=== PATIENT | female | born 1950 | race Caucasian/White ===

== ENCOUNTER 2017-06-30 21:03 | Observation (INO) ==
[2017-06-30] MEDS ORDERED: 0.9 % Sodium Chloride 1,000 ML IVC ONE (21:26)
--- NOTE | 2017-06-30 21:42 | Emergency Department Note ---
Disposition Clinical Impression: Acute electrocardiogram changes Altered mental status Qualifiers: Altered mental status type: unspecified Qualified Code(s): R41.82 - Altered mental status, unspecified Disposition: Admitted As Inpatient Condition: Good Time of Disposition: 04:13 Altered Mental Status HPI - General Chief Complaint: ED Altered Mental Status Stated Complaint: altered mental status, doesnt feel well Time Seen by Provider: 06/30/17 21:08 Source: patient Limitations: no limitations Nursing Notes Reviewed: Yes Vital Signs Reviewed: Yes - History of Present Illness HPI Narrative: Mrs. Hummel, 66-year-old female, presents from home with her granddaughter bedside valuation of confusion. Per granddaughter, last known normal was this morning. Granddaughter describes grandmother's confusion as grandmother forgetting what happened yesterday, forgetting conversations, forgetting instructions. Patient was at urgent care this morning for flulike symptoms. She does not recall this visit, where urgent care was located, or what the results of that visit were. Patient does not know her medical history and denies any change in medications. Granddaughter does not know grandmother's medical history and does not know if she has had any change in medications. ROS: Positive: As above Negative: Fever, chills, nausea, vomiting, trauma, headache, malaise, fatigue, neck pain, back pain, chest pain, palpitations, abdominal pain, dysuria, changes in bowel habits - Related Data Home Medications Medication Instructions Recorded Confirmed Atenolol 02/17/15 02/17/15 Levothyroxine 02/17/15 02/17/15 Sertraline HCl 02/17/15 02/17/15 Previous Rx's Medication Instructions Recorded Amoxicillin 875 mg PO BID #20 tablet 02/17/15 Ibuprofen [Motrin] 800 mg PO Q8HR #30 tablet 02/17/15 Oxycodone HCl/Acetaminophen 1 each PO Q6H PRN #16 tablet 02/17/15 [Percocet 5-325 mg Tablet] Allergies Allergy/AdvReac Type Severity Reaction Status Date / Time No Known Allergies Allergy Verified 02/17/15 17:39 All systems ED: reviewed and negative except as stated. Review of Systems: As Per HPI Past Medical History - Past Medical History Medical history: Reports: no medical history Psychiatric history: Reports: no psych history - Social History Smoking Status: Never smoker Smokeless Tobacco Status: No Alcohol use: Reports: none Drug use: Reports: none Physical Exam Vital Signs Reviewed General: Patient is alert, oriented to self and location (not oriented to situation, month, year), and in no acute distress. Head: atraumatic, normocephalic Eye: normal appearance, PERRL, EOMI, no scleral icterus, no conjunctival injection ENT: mucous membranes moist, normal external ear exam Neck: normal inspection, trachea midline, full ROM Chest: normal inspection, symmetric chest rise Respiratory: Good respiratory effort. Bilateral breath sounds are clear without wheezing, crackles, or rhonchi. Cardiovastular: Regular rate and rhythm. No clicks, rubs, gallops, or murmors. Normal heart sounds. Abdomen: Obese. Bowel sounds present normoactive x-4 quadrants. Abdomen is soft, nondistended, and nontender. No guarding or rebound. No organomegaly noted. Musculoskeletal: Spontaneously moving all extremities. Skin: warm, dry, intact. Neuro: GCS 15. Alert and oriented x4. Sensation light touch intact. No pronator drift. Negative finger to nose. Cranial nerves II through XII intact. No limb drift upper or lower extremities. Patient is able to repeat short phrases. Negative Kernig, negative Brudzinski Psych: Patient's affect is appropriate for situation. - General Limitations: no limitations General appearance: alert, in no apparent distress Course Course Narrative: Patient is well-appearing on presentation however, on discussion, she appears to have amnesia of the last several days. She answers questions straightforward in, she does not know the answer, simply states I do not know. As such, patient is a poor historian. Her granddaughter at bedside is understandably a poor historian. According to the counter, patient's daughter was bedside. She was able to confirm that there have been no medication changes and corroborate patient's confusion. Patients medical workup does not adequately explain her presentation. Additionally, initial EKG showed T-wave inversion in precordial leads. She was chest pain-free with troponin below upper limit of normal. Subsequent repeat EKG was unchanged from initial. Patient was provided with aspirin. I discussed the above with the patient, granddaughter, and daughter at bedside. They are agreeable to admission for continued evaluation and management. I discussed the above with the admitting hospitalist. He is in agreement to accepting the patient for continued evaluation management. Vital Signs Temperature 99.4 F 06/30/17 21:04 Pulse Rate 105 06/30/17 21:04 Respiratory Rate 16 06/30/17 21:04 Blood Pressure 121/77 06/30/17 21:04 O2 Sat by Pulse Oximetry 96 06/30/17 21:04 Temperature 98.4 F 07/01/17 03:37 Pulse Rate 87 07/01/17 03:37 Respiratory Rate 17 07/01/17 03:37 Blood Pressure 149/71 07/01/17 03:37 O2 Sat by Pulse Oximetry 94 07/01/17 03:37 Oxygen Delivery Oxygen Delivery Room Air Altered Mental Status - Lab Data Result diagrams: 06/30/17 21:30 06/30/17 21:30 Lab Results 06/30/17 06/30/17 06/30/17 Range/Units 20:02 20:02 21:30 WBC 4.8 (4.3-11.1) K/mcL RBC 4.79 (3.82-4.97) M/mcL Hgb 13.5 (11.5-15.4) g/dL Hct 41.3 (35.3-44.9) % MCV 86.2 (83.0-100.0) fL MCH 28.2 (28.0-33.3) pg MCHC 32.7 (31.6-35.5) g/dL RDW 12.8 (11.5-14.5) % Plt Count 148 (140-400) K/mcL MPV 9.7 (9.4-12.4) fL Immature Gran % 0.4 (0-4) % Seg Neutrophils % 82.1 % Lymphocytes % 7.5 % Monocytes % 9.6 % Eosinophils % 0.2 % Basophils % 0.2 % Neutrophils # 3.9 (1.6-8.9) K/mcL Lymphocytes # 0.4 L (0.6-4.6) K/mcL Monocytes # 0.5 (0.0-1.3) K/mcL Eosinophils # 0.0 (0.0-0.6) K/mcL Basophils # 0.0 (0.0-0.2) K/mcL PT (9.4-12.1) Seconds INR APTT (26.0-36.0) Seconds VBG pH (7.32-7.42) pH Units VBG pCO2 (41-51) mmHg VBG pO2 (25-50) mmHg VBG HCO3 (21-27) mEq/L Sodium (136-145) mEq/L Potassium (3.5-5.1) mEq/L Chloride (98-107) mEq/L Carbon Dioxide (23-29) mEq/L BUN (8-23) mg/dL Creatinine (0.60-1.20) mg/dL Est GFR ( Amer) (> 60) Est GFR (Non-Af Amer) (> 60) BUN/Creatinine Ratio (6-26) Glucose (70-105) mg/dL Calculated Osmolality (280-300) Calcium (8.6-10.3) mg/dL Total Bilirubin (0.3-1.0) mg/dL Direct Bilirubin (0.0-0.2) mg/dL Indirect Bilirubin (0.0-1.2) mg/dL AST (13-39) Units/L ALT (7-52) Units/L Alkaline Phosphatase (34-104) Units/L Ammonia (16-53) mcmol/L Troponin I (< 0.04) ng/mL Serum Total Protein (6.4-8.9) g/dL Albumin (3.5-5.7) g/dL Globulin (2.4-3.5) g/dL Albumin/Globulin Ratio (1.1-2.2) TSH (0.340-5.600) mcIU/mL Urine Color Yellow (Yellow) Urine Clarity Cloudy A (Clear) Urine pH 6.0 (5.0-8.0) pH Units Ur Specific [place] 1.027 H (1.010-1.025) Urine Protein 30 H (Neg-Trace) mg/dL Urine Glucose (UA) Normal (Normal) mg/dL Urine Ketones 15 H (Negative) mg/dL Urine Blood Negative (Negative) Urine Nitrite Negative (Negative) Urine Bilirubin Negative (Negative) Urine Urobilinogen Normal (Normal) mg/dL Ur Leukocyte Esterase Small H (Negative) Urine Microscopic RBC 0-3 (0-3) per hpf Urine Microscopic WBC 5-15 H (0-3) per hpf Ur Squamous Epith Cells Many H (None-Few) per lpf Urine Bacteria None Seen (None-Few) per hpf Hyaline Casts None Seen (None-Few) per lpf Ur Culture Indicated? NO. (NO) Urine Opiates Screen Negative (Glcvoq=738) ng/mL Ur Barbiturates Screen Negative (Ritowd=768) ng/mL Ur Phencyclidine Scrn Negative (Cutoff=25) ng/mL Ur Amphetamines Screen Negative (Fwddtz=2660) ng/mL U Benzodiazepines Scrn Negative (Xsnffb=888) ng/mL Urine Cocaine Screen Negative (Cutoff= 300) ng/mL U Marijuana (THC) Screen Negative (Cutoff = 50) ng/mL Ethyl Alcohol (0-10) mg/dL 06/30/17 06/30/17 06/30/17 Range/Units 21:30 21:30 21:30 WBC (4.3-11.1) K/mcL RBC (3.82-4.97) M/mcL Hgb (11.5-15.4) g/dL Hct (35.3-44.9) % MCV (83.0-100.0) fL MCH (28.0-33.3) pg MCHC (31.6-35.5) g/dL RDW (11.5-14.5) % Plt Count (140-400) K/mcL MPV (9.4-12.4) fL Immature Gran % (0-4) % Seg Neutrophils % % Lymphocytes % % Monocytes % % Eosinophils % % Basophils % % Neutrophils # (1.6-8.9) K/mcL Lymphocytes # (0.6-4.6) K/mcL Monocytes # (0.0-1.3) K/mcL Eosinophils # (0.0-0.6) K/mcL Basophils # (0.0-0.2) K/mcL PT 11.6 (9.4-12.1) Seconds INR 1.1 APTT 24.4 L (26.0-36.0) Seconds VBG pH (7.32-7.42) pH Units VBG pCO2 (41-51) mmHg VBG pO2 (25-50) mmHg VBG HCO3 (21-27) mEq/L Sodium 132 L (136-145) mEq/L Potassium 4.0 (3.5-5.1) mEq/L Chloride 101 (98-107) mEq/L Carbon Dioxide 20 L (23-29) mEq/L BUN 11 (8-23) mg/dL Creatinine 0.80 (0.60-1.20) mg/dL Est GFR ( Amer) > 60 (> 60) Est GFR (Non-Af Amer) > 60 (> 60) BUN/Creatinine Ratio 14 (6-26) Glucose 124 H (70-105) mg/dL Calculated Osmolality 275 L (280-300) Calcium 9.1 (8.6-10.3) mg/dL Total Bilirubin 0.6 (0.3-1.0) mg/dL Direct Bilirubin 0.1 (0.0-0.2) mg/dL Indirect Bilirubin 0.5 (0.0-1.2) mg/dL AST 20 (13-39) Units/L ALT 13 (7-52) Units/L Alkaline Phosphatase 97 (34-104) Units/L Ammonia (16-53) mcmol/L Troponin I < 0.03 (< 0.04) ng/mL Serum Total Protein 6.8 (6.4-8.9) g/dL Albumin 3.9 (3.5-5.7) g/dL Globulin 2.9 (2.4-3.5) g/dL Albumin/Globulin Ratio 1.3 (1.1-2.2) TSH 3.093 (0.340-5.600) mcIU/mL Urine Color (Yellow) Urine Clarity (Clear) Urine pH (5.0-8.0) pH Units Ur Specific [place] (1.010-1.025) Urine Protein (Neg-Trace) mg/dL Urine Glucose (UA) (Normal) mg/dL Urine Ketones (Negative) mg/dL Urine Blood (Negative) Urine Nitrite (Negative) Urine Bilirubin (Negative) Urine Urobilinogen (Normal) mg/dL Ur Leukocyte Esterase (Negative) Urine Microscopic RBC (0-3) per hpf Urine Microscopic WBC (0-3) per hpf Ur Squamous Epith Cells (None-Few) per lpf Urine Bacteria (None-Few) per hpf Hyaline Casts (None-Few) per lpf Ur Culture Indicated? (NO) Urine Opiates Screen (Asrure=518) ng/mL Ur Barbiturates Screen (Tcdpfk=843) ng/mL Ur Phencyclidine Scrn (Cutoff=25) ng/mL Ur Amphetamines Screen (Asqnhp=3038) ng/mL U Benzodiazepines Scrn (Xxbiey=466) ng/mL Urine Cocaine Screen (Cutoff= 300) ng/mL U Marijuana (THC) Screen (Cutoff = 50) ng/mL Ethyl Alcohol < 10 (0-10) mg/dL 06/30/17 06/30/17 Range/Units 21:51 22:12 WBC (4.3-11.1) K/mcL RBC (3.82-4.97) M/mcL Hgb (11.5-15.4) g/dL Hct (35.3-44.9) % MCV (83.0-100.0) fL MCH (28.0-33.3) pg MCHC (31.6-35.5) g/dL RDW (11.5-14.5) % Plt Count (140-400) K/mcL MPV (9.4-12.4) fL Immature Gran % (0-4) % Seg Neutrophils % % Lymphocytes % % Monocytes % % Eosinophils % % Basophils % % Neutrophils # (1.6-8.9) K/mcL Lymphocytes # (0.6-4.6) K/mcL Monocytes # (0.0-1.3) K/mcL Eosinophils # (0.0-0.6) K/mcL Basophils # (0.0-0.2) K/mcL PT (9.4-12.1) Seconds INR APTT (26.0-36.0) Seconds VBG pH 7.44 H (7.32-7.42) pH Units VBG pCO2 39 L (41-51) mmHg VBG pO2 90 H (25-50) mmHg VBG HCO3 27 (21-27) mEq/L Sodium (136-145) mEq/L Potassium (3.5-5.1) mEq/L Chloride (98-107) mEq/L Carbon Dioxide (23-29) mEq/L BUN (8-23) mg/dL Creatinine (0.60-1.20) mg/dL Est GFR ( Amer) (> 60) Est GFR (Non-Af Amer) (> 60) BUN/Creatinine Ratio (6-26) Glucose (70-105) mg/dL Calculated Osmolality (280-300) Calcium (8.6-10.3) mg/dL Total Bilirubin (0.3-1.0) mg/dL Direct Bilirubin (0.0-0.2) mg/dL Indirect Bilirubin (0.0-1.2) mg/dL AST (13-39) Units/L ALT (7-52) Units/L Alkaline Phosphatase (34-104) Units/L Ammonia 52 (16-53) mcmol/L Troponin I (< 0.04) ng/mL Serum Total Protein (6.4-8.9) g/dL Albumin (3.5-5.7) g/dL Globulin (2.4-3.5) g/dL Albumin/Globulin Ratio (1.1-2.2) TSH (0.340-5.600) mcIU/mL Urine Color (Yellow) Urine Clarity (Clear) Urine pH (5.0-8.0) pH Units Ur Specific [place] (1.010-1.025) Urine Protein (Neg-Trace) mg/dL Urine Glucose (UA) (Normal) mg/dL Urine Ketones (Negative) mg/dL Urine Blood (Negative) Urine Nitrite (Negative) Urine Bilirubin (Negative) Urine Urobilinogen (Normal) mg/dL Ur Leukocyte Esterase (Negative) Urine Microscopic RBC (0-3) per hpf Urine Microscopic WBC (0-3) per hpf Ur Squamous Epith Cells (None-Few) per lpf Urine Bacteria (None-Few) per hpf Hyaline Casts (None-Few) per lpf Ur Culture Indicated? (NO) Urine Opiates Screen (Xqzwkv=147) ng/mL Ur Barbiturates Screen (Cwtlbb=256) ng/mL Ur Phencyclidine Scrn (Cutoff=25) ng/mL Ur Amphetamines Screen (Hutren=0139) ng/mL U Benzodiazepines Scrn (Jtiltg=921) ng/mL Urine Cocaine Screen (Cutoff= 300) ng/mL U Marijuana (THC) Screen (Cutoff = 50) ng/mL Ethyl Alcohol (0-10) mg/dL - EKG Data EKG attestation: Yes I reviewed and interpreted this EKG. EKG results narrative: EKG dated 30 June 2017 at 21:17 interpreted as sinus rhythm with rate of 99. Normal intervals. Normal axis. Concerning T-wave inversion in precordial leads as well as in lead 3. Compared to previous EKG dated 12/04/2002 shows these changes are new. TPA Checklist - LKW: 3-4.5 hrs Add. Warnings/Precautions Patient/family understanding: The patient/family members have been counseled and understood the risk, benefit , and alternatives of treatment.
[2017-06-30 21:48] LABS: Basophils % 0.2 %; Eosinophils % 0.2 %; Hematocrit 41.3 % (35.3-44.9); Hemoglobin 13.5 g/dL (11.5-15.4); Immature Granulocytes % 0.4 % (0-4); Lymphocytes # 0.4 K/mcL (0.6-4.6); Lymphocytes % 7.5 %; Mean Corpuscular HGB Conc 32.7 g/dL (31.6-35.5); Mean Corpuscular Hemoglobin 28.2 pg (28.0-33.3); Mean Corpuscular Volume 86.2 fL (83.0-100.0); Mean Platelet Volume 9.7 fL (9.4-12.4); Monocytes # 0.5 K/mcL (0.0-1.3); Monocytes % 9.6 %; Neutrophils # 3.9 K/mcL (1.6-8.9); Platelet Count 148 K/mcL (140-400); Red Blood Count 4.79 M/mcL (3.82-4.97); Red Cell Distribution Width 12.8 % (11.5-14.5); Segmented Neutrophils % 82.1 %
[2017-06-30 21:53] LABS: VBG HCO3 27 mEq/L (21-27); VBG PCO2 39 mmHg (41-51); VBG PH 7.44 pH Units (7.32-7.42); VBG PO2 90 mmHg (25-50)
[2017-06-30 21:53] LABS: INR 1.1; Prothrombin Time 11.6 Seconds (9.4-12.1)
[2017-06-30 21:56] LABS: Activated Partial Thrombo Time 24.4 Seconds (26.0-36.0)
[2017-06-30 22:20] LABS: Bilirubin,Urine Negative (Negative); Blood,Urine Negative (Negative); Clarity,Urine Cloudy (Clear); Color,Urine Yellow (Yellow); Glucose,Urine (UA) Normal (Normal); Ketones,Urine 15 mg/dL (Negative); Leukocyte Esterase,Urine Small (Negative); Nitrite,Urine Negative (Negative); Protein,Urine 30 mg/dL (Neg-Trace); Specific Gravity,Urine 1.027 (1.010-1.025); Urobilinogen,Urine Normal (Normal)
[2017-06-30 22:21] LABS: Ethanol < 10 mg/dL (0-10)
[2017-06-30 22:22] LABS: Amphetamine Screen,Urine Negative ng/mL (Cutoff=1000); Barbiturate Screen,Urine Negative ng/mL (Cutoff=200); Benzodiazepines Screen,Urine Negative ng/mL (Cutoff=200); Cannabinoid Screen,Urine Negative ng/mL (Cutoff = 50); Cocaine Screen,Urine Negative ng/mL (Cutoff= 300); Opiate Screen,Urine Negative ng/mL (Cutoff=300); Phencyclidine Screen,Urine Negative ng/mL (Cutoff=25)
[2017-06-30 22:32] LABS: Bacteria,Urine None Seen per hpf (None-Few); Hyaline Casts,Urine None Seen per lpf (None-Few); RBC,Urine 0-3 per hpf (0-3); Squamous Epithelial Cell,Urine Many per lpf (None-Few)
[2017-06-30 22:38] LABS: Alanine Aminotransferase 13 Units/L (7-52); Albumin 3.9 g/dL (3.5-5.7); Albumin/Globulin Ratio 1.3 (1.1-2.2); Alkaline Phosphatase 97 Units/L (34-104); Aspartate Amino Transferase 20 Units/L (13-39); BUN/Creatinine Ratio 14 (6-26); Bilirubin,Direct 0.1 mg/dL (0.0-0.2); Bilirubin,Indirect 0.5 mg/dL (0.0-1.2); Bilirubin,Total 0.6 mg/dL (0.3-1.0); Blood Urea Nitrogen 11 mg/dL (8-23); Calcium 9.1 mg/dL (8.6-10.3); Carbon Dioxide 20 mEq/L (23-29); Chloride 101 mEq/L (98-107); Globulin 2.9 g/dL (2.4-3.5); Glucose 124 mg/dL (70-105); Osmolality,Calculated 275 (280-300); Sodium 132 mEq/L (136-145); Total Protein 6.8 g/dL (6.4-8.9); eGFR For African Americans > 60 (> 60); eGFR For Non-African Americans > 60 (> 60)
[2017-06-30 22:39] LABS: Thyroid Stimulating Hormone 3.093 mcIU/mL (0.340-5.600)
[2017-06-30] MEDS ORDERED: Aspirin 81 MG TAB.CHEW PO ONE (22:48)
--- NOTE | 2017-07-01 | Emergency Department Note ---
START Narrative - START START: I examined this patient and my medical decision-making was reviewed with the Resident Physician. I agree with the documented findings, disposition and treatment plan as described except to the extent set forth below. 66-year-old female presents emergency room with memory problems. She has been having difficulty remembering events and exactly where she is at and the time and place. This is all new for her that started today. She has no focal motor or sensory deficits. Her workup in the ER is unremarkable. Patient needs to be admitted for further workup for this memory problem. This is a very acute onset. Her EKG incidentally showed diffuse T-wave inversions as well as some ST depression in the anterior septal lateral leads. Based on this, patient will need to be admitted for further workup of this EKG antibody as well as his confusion issue.
[2017-07-01] MEDS ORDERED: Ondansetron 4 MG/2 ML VIAL IVP PRN (01:53)
[2017-07-01] MEDS ORDERED: Naloxone 0.4 MG/ML INJ IVP PRN (01:53)
[2017-07-01] MEDS ORDERED: traMADol 50 MG TABLET PO PRN (01:53)
--- NOTE | 2017-07-01 02:28 | Internal Med History&Physical ---
Date of Encounter: 07/01/17 Time of Encounter: 01:00 Assessment and Plan (1) Global amnesia Current visit: Yes Status: Acute Will place the pt into tele for observation Need to r/o CVA Reviewed CT of head - no acute ICH Reviewed EKG showed NSR, No St changes, however she does have non specific T wave changes will get 2 D Echo in AM trend on Trop so far negative trop will get MRI of Brain and Carotid doppler in AM started her on ASA Not a candidate for tPA due to her vague symptoms and prolonged duration on symptoms prior to ER visit Will consult Neuro in AM Check B12, Folic, FLP in AM Normal TSH, so will check T3 and T4 (2) HTN (hypertension) Current visit: Yes Status: Acute resumed home meds Qualifiers: Qualified Code(s): I10 - Essential (primary) hypertension (3) Hypothyroidism Current visit: Yes Status: Acute Resumed home meds Qualifiers: Qualified Code(s): E03.9 - Hypothyroidism, unspecified (4) Anxiety Current visit: Yes Status: Acute resumed home meds Internal Medicine - H&P: HPI Chief complaint: Confusion / Memory problems Admitted From: Emergency Dept Plans for Post Hospital Care: Home History of present illness: Ms. Hummel is a 66 year old female with known PMH of HTN Hypothyroidism, and Anxiety who was brought into ER by family stating that since y/d morning pt looks more confused, and do not remember anything. As per grand daughter who is at bed side last known normal was this morning. Granddaughter describes grandmother's confusion as forgetting what happened yesterday, forgetting conversations and instructions. Now pt is more alert, awake and O x 3, however she still looks little confused. She denied any CP / SOB. Does c/o headache. Past Med Surg Social Fam HX - Past Medical History Medical history: hypertension, thyroid disease Psychiatric history: anxiety - Social History Smoking Status: Never smoker Smokeless Tobacco Status: No Alcohol use: none Drug use: none - Family History Mother Living Status: Father Living Status: Internal Medicine - H&P: Meds Amoxicillin 875 mg PO BID #20 tablet 02/17/15 [Rx] Atenolol 02/17/15 [History] Ibuprofen [Motrin] 800 mg PO Q8HR #30 tablet 02/17/15 [Rx] Levothyroxine 02/17/15 [History] Oxycodone HCl/Acetaminophen [Percocet 5-325 mg Tablet] 1 each PO Q6H PRN #16 tablet 02/17/15 [Rx] Sertraline HCl 02/17/15 [History] 3 Allergy/AdvReac Type Severity Reaction Status Date / Time No Known Allergies Allergy Verified 02/17/15 17:39 All Systems PM: A 10-system review of systems was performed and is negative for pertinent findings except as documented above in the HPI. Review of systems: All the systems are reviewed everything is benign except the systems and symptoms I mentioned in the history of present illness - Constitutional Vitals: Temp Pulse Resp BP Pulse Ox 98.3 F 85 16 144/75 94 07/01/17 00:54 07/01/17 00:54 07/01/17 00:54 07/01/17 00:54 07/01/17 00:54 General appearance: Present: cooperative, A&O X 3, no acute distress. Absent: answers questions appropriately - Head Head exam: Present: atraumatic, normal inspection - Neck Neck exam general surgery: Present: supple - Respiratory Respiratory exam: Present: decreased breath sounds. Absent: rales, respiratory distress, rhonchi, wheezes - Cardiovascular Cardiovascular exam: Present: RRR, +S1, +S2. Absent: tachycardia - GI/Abdominal GI/Abdominal exam: Present: normal bowel sounds, soft. Absent: rebound, rigid, tenderness - Extremities Exam Extremities exam: Absent: pedal edema, tenderness - Back Exam Back exam: Absent: CVA tenderness (L), CVA tenderness (R) - Neurological Exam Neurological exam: Present: alert, altered, CN II-XII intact, normal gait, oriented X3, reflexes normal, no focal deficits, strengths equal and symetr throughout. Absent: pronater drift, facial droop, speech deficit - Psychiatric Psychiatric exam: Present: normal affect, normal mood - Skin Skin exam: Absent: rash Internal Med - H&P Results - Labs CBC & Chem 7: 06/30/17 21:30 06/30/17 21:30
[2017-07-01] MEDS: 0.9 % Sodium Chloride 1,000 ML IVC SCH ×2 (02:48→15:11)
[2017-07-01 06:09] LABS: Chol/HDL Ratio 4.9 (0-4.9); Magnesium 1.9 mg/dL (1.6-2.6)
[2017-07-01 06:23] LABS: Triiodothyronine (T3) Free 2.56 pg/mL (2.50-3.90)
[2017-07-01] MEDS: Acetaminophen 325 MG TABLET PO PRN ×2 (06:59→18:16)
--- NOTE | 2017-07-01 16:31 | Neurology - Consult Note ---
Date of Encounter: 07/01/17 Time of Encounter: 16:30 Assessment and Plan (1) Acute encephalopathy Current Visit: Yes Status: Acute Patient had subacute to acute onset encephalopathy that was preceded by upper respiratory illness and associated with headache. Patient appears to be much improved today. No focal deficits noted on exam. Most likely related to underlying viral illness. Head CT was negative. No evidence of CVA on exam however MRI is pending. No evidence or history of seizure activity. The symptoms are likely related to an underlying viral illness that has much improved. We will follow up pending MRI results. History of Present Illness Chief complaint: Altered mental status HPI: Ms. Hummel is a 66 year old female with history of hypertension, hyperlipidemia, anxiety, depression who presents with confusion. Patient states that she had not been feeling well for several days prior to arrival and had complaints of fatigue, cough, congestion. Then yesterday around noon the patient's children noticed that the patient was becoming more forgetful and could not remember things that happened just minutes prior. She also appeared to be unsteady on her feet at this time. This occurred approximately at noon in got worse to approximately 3 PM when the brought the patient to the emergency department. A moderate to severe headache was also noted at this time which has greatly improved but not resolved. At the time I examined the patient and family report that she is doing better although not back to her baseline just yet. The patient does not remember much from yesterday. No focal deficits were noted. Patient did not have any falls or head trauma. Past Med Surg Social Fam HX - Past Medical History Medical history: no medical history Psychiatric history: no psych history - Social History Smoking Status: Never smoker Smokeless Tobacco Status: No Alcohol use: none Drug use: none - Family History Mother Living Status: Father Living Status: Medications and Allergies Aspirin [Lo-Dose Aspirin EC] 81 mg PO DAILY 07/01/17 [History] Atenolol [Tenormin] 25 mg PO DAILY 07/01/17 [History] Atorvastatin Calcium [Lipitor] 20 mg PO QPM 07/01/17 [History] Gabapentin [Neurontin] 100 mg PO BID 07/01/17 [History] LORazepam [Ativan] 1 mg PO DAILY 07/01/17 [History] Levothyroxine Sodium 88 mcg PO DAILY 07/01/17 [History] Sertraline [Zoloft] 150 mg PO DAILY 07/01/17 [History] Triamterene/HCTZ 37.5/25mg [Dyazide] 1 tab PO DAILY 07/01/17 [History] 3 Allergy/AdvReac Type Severity Reaction Status Date / Time No Known Allergies Allergy Verified 02/17/15 17:39 All Systems: A 10-system review of systems was performed and is negative for pertinent findings except as documented above in the HPI. Physical Examination - Vital Signs Vital Signs: Initial Vital Signs Temp Pulse Resp BP Pulse Ox 99.4 F 105 16 121/77 96 06/30/17 21:04 06/30/17 21:04 06/30/17 21:04 06/30/17 21:04 06/30/17 21:04 - Constitutional General appearance: comfortable - Neurologic Sensorimotor examination: intact Detailed motor examination: grossly full strength in all extremities Motor examination - right side: 5/5: deltoids, biceps, triceps, wrist flexion, wrist extension, proposal lead writer, hip flexors, tibialis Anterior, quadriceps, toe extension (EHL), plantarflexion Motor examination - left side: 5/5: deltoids, biceps, triceps, wrist flexion, wrist extension, hip flexors, proposal lead writer, quadriceps, tibialis Anterior, toe extension (EHL), plantarflexion Detailed sensory examination: intact Reflexes: Biceps: 2+, Triceps: 2+, Brachioradialis: 2+, Patella: 2+, Achilles: 2 + Mental Status Examination: awake, alert, oriented to person, oriented to place, follows commands appropriately, answers questions appropriately, no agnosia, no aphasia, no aproxia, impaired memory Cranial nerve examination: PERRL, EOMI, visual vásquez intact, sensory to face intact, mastication intact, no facial asymmetry is present, no dysarthria, hearing is intact symmetrically, soft palate elevates bilaterally upon phonation , tongue protrudes midline, no atrophy or facial fasiculations present Results - Laboratory Findings CBC and BMP: 06/30/17 21:30 06/30/17 21:30 Abnormal lab findings: Abnormal lab results Lymphocytes # 0.4 K/mcL (0.6-4.6) L 06/30/17 21:30 APTT 24.4 Seconds (26.0-36.0) L 02/07/18 21:30 VBG pH 7.44 pH Units (7.32-7.42) H 06/30/17 21:51 VBG pCO2 39 mmHg (41-51) L 06/30/17 21:51 VBG pO2 90 mmHg (25-50) H 06/30/17 21:51 Sodium 132 mEq/L (136-145) L 06/30/17 21:30 Carbon Dioxide 20 mEq/L (23-29) L 06/30/17 21:30 Glucose 124 mg/dL (70-105) H 06/30/17 21:30 POC Glucose 134 (58-89) H 06/30/17 21:13 Calculated Osmolality 275 (280-300) L 06/30/17 21:30 LDL Cholesterol, Calc 126 mg/dL (0-99) H 07/01/17 05:16 HDL Cholesterol 37 mg/dL (40-59) L 07/01/17 05:16 Folate 23.0 ng/mL (3.0-16.0) H 07/01/17 05:16 Urine Clarity Cloudy (Clear) A 06/30/17 20:02 Ur Specific [place] 1.027 (1.010-1.025) H 06/30/17 20:02 Urine Protein 30 mg/dL (Neg-Trace) H 06/30/17 20:02 Urine Ketones 15 mg/dL (Negative) H 06/30/17 20:02 Ur Leukocyte Esterase Small (Negative) H 06/30/17 20:02 Urine Microscopic WBC 5-15 per hpf (0-3) H 06/30/17 20:02 Ur Squamous Epith Cells Many per lpf (None-Few) H 06/30/17 20:02 Consult Discharge Plan - Plan Referrals: Farnaz Monique MD [Primary Care Provider] -
--- NOTE | 2017-07-01 17:29 | Event Note ---
Date of Encounter: 07/01/17 Time of Encounter: 17:27 Patient with no further amnesia or focal deficiencies. She feels she is back to baseline except for a headache. Neurology consult is pending, MRI is pending , no evidence of CVA on CT. Patient has no complaints at this time except for the headache is in no distress and is satisfied with her care has no questions at this time.
--- NOTE | 2017-07-01 19:57 | Electrocardiograph Report ---
[place] [address] Test Date: 2017-06-30 Pat Name: Elle Hummel Department: 104 Room: 3B Gender: F Heat Treater Head: : 1950 Requested By: Kenneth Salazar Order Number: [id number] Reading MD: Bj James MD Measurements Intervals Thicket Rate: 99 P: 11 NH: 118 QRS: 18 QRSD: 86 T: -83 QT: 327 QTc: 383 Interpretive Statements SINUS RHYTHM WITH SHORT NH INTERVAL LEFT VENTRICULAR HYPERTROPHY AND ST-T CHANGE BASELINE ARTIFACT COMPLICATES ACCURATE INTERPRETATION Electronically Signed On 07-01-2017 19:55:46 EST by Bj James MD
--- NOTE | 2017-07-01 20:14 | Electrocardiograph Report ---
[address] [place] [address] Test Date: 2017-06-30 Pat Name: Elle Hummel Department: 104 Room: 3B Gender: F Ingot Passer: AUDI : 1950 Requested By: Anamika Mitchell Order Number: [id number] Reading MD: Bj James MD Measurements Intervals [place] Rate: 93 P: 36 NM: 139 QRS: 23 QRSD: 83 T: 258 QT: 355 QTc: 405 Interpretive Statements SINUS RHYTHM ANTEROLATERAL ISCHEMIA Electronically Signed On 07-01-2017 20:12:51 EST by Bj James MD
[2017-07-01] MEDS: Benzonatate 100 MG CAPSULE PO PRN (22:51)
[2017-07-02] MEDS: Acetaminophen 325 MG TABLET PO PRN (07:33)
[2017-07-02] MEDS: Benzonatate 100 MG CAPSULE PO PRN (07:33)
--- NOTE | 2017-07-02 09:34 | Discharge Summary ---
Date of Encounter: 07/02/17 Time of Encounter: 09:32 - Discharge Diagnosis (1) Acute encephalopathy Priority: Primary Status: Acute Comments: Patient had subacute to acute onset encephalopathy that was preceded by upper respiratory illness and associated with headache. Patient improved and at baseline today. No focal deficits noted on exam. Most likely related to underlying viral illness. Head CT was negative. MRI of the brain negative for acute intercranial abnormalities.. No evidence or history of seizure activity. The symptoms are likely related to an underlying viral illness that has much improved. Normal O service was consulted and recommended no further testing. No evidence of ASSIST[employer]EN[employer]ACH infection. His observation. Headaches could accompany of viral illness which she had over the last few days before admission. Nonfocal neurological exam. Diagnosis of exclusion would be transient global amnesia which is usually a benign phenomenon per his note.. (2) Altered mental status Priority: Primary Status: Acute Comments: patient is back to baseline and per neurology the diagnosis of exclusion would be transient level amnesia Qualifiers: Altered mental status type: unspecified Qualified Code(s): R41.82 - Altered mental status, unspecified (3) Anxiety Priority: Secondary Status: Chronic Comments: patient has a significant anxiety disorder and is u continue home medication regime and close follow-up with her primary care physician (4) Global amnesia Priority: Primary Status: Acute Comments: Per neurology service this is a diagnosis of exclusion and is usually a benign phenomenon as all testing was negative for stroke or other causes. is very concerned and explained that I would return to the ER if any of the symptoms recurr. (5) HTN (hypertension) Priority: Secondary Status: Acute Comments: Blood pressure is stable, readings are borderline, keep diary and f/u with PCP Qualifiers: Qualified Code(s): I10 - Essential (primary) hypertension (6) Hypothyroidism Priority: Secondary Status: Chronic Comments: Continue home meds, thyroid studies TSH 3.093, free T4 0.83, free T3 2 0.56, all within normal limits Qualifiers: Qualified Code(s): E03.9 - Hypothyroidism, unspecified - Discharge Medications Prescriptions: Benzonatate [Tessalon] 100 mg PO TID PRN #30 capsule PRN Reason: Cough Home Medications: Aspirin [Lo-Dose Aspirin EC] 81 mg PO DAILY 07/01/17 [History] Atenolol [Tenormin] 25 mg PO DAILY 07/01/17 [History] Atorvastatin Calcium [Lipitor] 20 mg PO QPM 07/01/17 [History] Gabapentin [Neurontin] 100 mg PO BID 07/01/17 [History] LORazepam [Ativan] 1 mg PO DAILY 07/01/17 [History] Levothyroxine Sodium 88 mcg PO DAILY 07/01/17 [History] Sertraline [Zoloft] 150 mg PO DAILY 07/01/17 [History] Triamterene/HCTZ 37.5/25mg [Dyazide] 1 tab PO DAILY 07/01/17 [History] Benzonatate [Tessalon] 100 mg PO TID PRN #30 capsule 07/02/17 [Rx] Allergies/Adverse Reactions: 3 Allergy/AdvReac Type Severity Reaction Status Date / Time No Known Allergies Allergy Verified 02/17/15 17:39 Procedures/tests Complete & Pending: Procedures Performed prior 72 hours Category Date Time Status MR head/brain wo con [MR] Routine MRI 07/01/17 01:58 Completed ECG 12 lead ECG [ECG] Routine Y 06/30/17 23:02 Completed EV carotid duplex imaging BI Routine Y 07/01/17 01:58 Completed EV echocardiogram Routine Y 07/01/17 02:39 Completed Date of admission: 07/01/17 00:34 Primary care physician: Farnaz Monique Consults: 07/01/17 14:14 Consult to Neurology [CONS] Routine Consulting Provider: [facility] Reason for Consult: altered mental status, global amnesia Time Notified: 14:15 Call Completed: Yes Discharging clinician: Sol Lizarraga Anticipated date of discharge: 07/02/17 - Patient Status Disposition: Home, Self-Care Condition: Good Functional capacity at discharge: independent ambulation Overall status at discharge: patient is back to baseline - Discharge Instructions Follow Up With: Farnaz Monique MD [Primary Care Provider] - - Diet and Activity Activity: resume usual activities as tolerated Diet: advance to your usual diet Interval History: Patient is back to her baseline today she has no focal deficits she denies dizziness, memory loss, fever, chills, body aches, sore throat, changes in bowel or bladder. She does still have a low-grade headache and is still bothered by a cough. Her is at the bedside. I discussed needing to keep a blood pressure log for a few weeks when she is back to her baseline upon up with her primary care physician if her blood pressure remains elevated. They verbalized understanding. I also did agree that if her symptoms recur she should return to the emergency room Hospital course: Ms. Hummel is a 66 year old female who is admitted with global amnesia altered mental status. She had a complete normal workup with a neurology consult. CT of the head and MRI of the brain were reviewed with no acute findings. The neurologist felt that the diagnosis of exception was transient global amnesia. She is under a great deal of stress. He would continue aspirin and no further recommendations for neuro workup. Blood pressure was on the higher and that would keep a blood pressure log and the ferritin her primary care physician. Please see the assessment and plan for further details of this admission. Tessalon prescribed for lingering cough after recent viral illness. - Time Spent with Patient Total time spent providing and/or coordinating discharge services: Less than 30 minutes - Constitutional Vitals: Temp Pulse Resp BP Pulse Ox 100.3 F H 91 20 146/73 93 07/02/17 07:21 07/02/17 07:21 07/02/17 07:21 07/02/17 07:21 07/02/17 07:21 General appearance: Present: cooperative, A&O X 3, pleasant, no acute distress. Absent: answers questions appropriately - Head Head exam: Present: atraumatic, normocephalic - Eye Eye exam: Present: PERRL, conjuntiva pink, sclera anicteric Pupils: Present: PERRL - Neck Neck exam general surgery: Present: supple, trachea midline. Absent: lymphadenopathy - Respiratory Respiratory exam: Present: CTAB. Absent: accessory muscle use, rales, rhonchi, wheezes - Cardiovascular Cardiovascular exam: Present: RRR, +S1, +S2. Absent: diastolic murmur, gallop, rubs, systolic murmur - GI/Abdominal GI/Abdominal exam: Present: normal bowel sounds, soft, no peritoneal signs. Absent: distended, tenderness - Extremities Exam Extremities exam: Present: warm, radial pulses palpable and symmetrical. Absent : calf tenderness, cyanotic, pedal edema - Neurological Exam Neurological exam: Present: alert, CN II-XII intact, normal gait, oriented X3, no focal deficits, strengths equal and symetr throughout. Absent: altered, motor sensory deficit, pronater drift, facial droop, speech deficit - Skin Skin exam: Present: dry, intact, warm
[2017-07-02 10:44] VITALS: BP 119/65
== END 2017-07-02 12:15 | disposition home or self-care (01) ==
LOC: 3BNU 21:03 → EMEROO 21:03 → 3BNU 07-01 00:48
PROVIDERS: ADMIT Family Medicine; ATTEND Registered Nurse